=== PATIENT | female | born 1995 | race Caucasian/White ===

== ENCOUNTER 2017-06-16 12:20 | Emergency (ER) | payer BC ==
[~2017-06-16] VITALS: Ht 160 cm; Wt 52.6 kg
[2017-06-16 12:39] VITALS: BP 135/87; PULSE 94; TEMP 36.8; O2SAT 98; Ht 160 cm; Wt 52.6 kg
[2017-06-16] MEDS ORDERED: TOPI100T20 PO (12:51)
[2017-06-16] MEDS ORDERED: FLUV100T12 PO (12:51)
[2017-06-16] MEDS ORDERED: SULF800T23 PO (12:53)
--- NOTE | 2017-06-16 12:54 | EMERGENCY ROOM VISIT NOTE ---
ED Visit Note First contact with patient: 12:43 CHIEF COMPLAINT: Frequent and painful urination HISTORY OF PRESENT ILLNESS: This 21-year-old female presents to the emergency department ambulatory complaining of increased frequency of urination, burning pain with urination, and a feeling of incomplete voiding since yesterday. The patient passes very small volumes of urine with each episode of voiding. The patient does not have abdominal pain. They deny back pain, fever, or vaginal discharge. The patient has had frequent urinary tract infections in the past. The patient does not have history of diabetes, HTN, or urinary tract system dysfunction. Patient feels they are not at risk for STIs. The patient has a history of recurrent urinary tract infections. She did follow with urology several years ago. She has not had a UTI for at least one year. She states that her boyfriend was visiting this weekend and she did have intercourse and feels this is the reason she is having a potential urinary tract infection. REVIEW OF SYSTEMS: A 10 system review of systems was completed with positives and pertinent negatives listed in the HPI. ALLERGIES: No known drug allergies MEDICATIONS: Topamax PMH: Migraines SOCIAL HISTORY: The patient is a student. She does not smoke PHYSICAL EXAM: Vital Signs: Reviewed Nurse's notes, vital signs stable. GENERAL : This is a 21-year-old female, in no acute distress, they do not appear toxic, well-developed, well-nourished. ABDOMEN: Positive bowel sounds x 4. The abdomen is soft, mildly tender in the suprapubic area, but no masses or organs are felt. There is there is minimal right-sided CVA tenderness. The skin is clear. NEURO: Alert and oriented to person place and time. EMERGENCY DEPARTMENT COURSE: I examined the patient. The patient has a history of recurrent urinary tract infection. She is nontoxic in appearance. She does not have a fever. She is not vomiting. She does not have any significant CVA tenderness or abdominal tenderness on examination. The patient states she has done well with Bactrim in the past. A urinalysis was obtained and was sent for culture. She will be placed on Bactrim. She is already taking Pyridium. She is encouraged to return immediately with any fevers, vomiting, worsening pain. The patient was discharged home in good condition. Test 06/16/17 13:00 Urine Color ORANGE Urine Appearance SLIGHTLY CLOUDY (CLEAR) Urine pH (4.5-7.5) Urine Specific Russell 1.016 (1.000-1.030) Urine Protein POS (NEG) Urine Glucose (UA) (NEG) Urine Ketones (NEG) Urine Occult Blood (NEG) Urine Nitrite (NEG) Urine Bilirubin (NEG) Urine Urobilinogen (NEG) Urine Leukocyte Esterase (NEG) Urine RBC >30 /hpf (0-4) Urine WBC >30 /hpf (0-5) Urine Epithelial Cells 20-30 /lpf (0-5) Urine Bacteria 1+ (NEG) Urine Test NEG (NEG) Current/Historical Medications Scheduled Fluvoxamine Maleate (Luvox), 200 MG PO HS Sulfa/Trimethoprim (Bactrim Ds 800MG/160MG), 1 TAB PO BID Topiramate (Topamax), 150 MG PO HS Allergies Coded Allergies: No Known Allergies (Unverified , 07/16/16) Vital Signs Date Time Temp Pulse Resp B/P (MAP) Pulse Ox O2 Delivery O2 Flow Rate FiO2 06/16/17 12:39 36.8 94 15 135/87 98 Room Air Laboratory Results Test 06/16/17 13:00 Urine Color ORANGE Urine Appearance SLIGHTLY CLOUDY (CLEAR) Urine pH (4.5-7.5) Urine Specific Russell 1.016 (1.000-1.030) Urine Protein POS (NEG) Urine Glucose (UA) (NEG) Urine Ketones (NEG) Urine Occult Blood (NEG) Urine Nitrite (NEG) Urine Bilirubin (NEG) Urine Urobilinogen (NEG) Urine Leukocyte Esterase (NEG) Urine RBC >30 /hpf (0-4) Urine WBC >30 /hpf (0-5) Urine Epithelial Cells 20-30 /lpf (0-5) Urine Bacteria 1+ (NEG) Urine Test NEG (NEG) Departure Information Impression Primary Impression: Urinary tract infection Dispostion Home / Self-Care Condition GOOD Prescriptions Sulfa/Trimethoprim (Bactrim Ds 800MG/160MG) Tab 1 TAB PO BID for 7 Days, #14 TAB Prov: Alejandra Escalona PA-C 06/16/17 Referrals [facility] (PCP) Patient Instructions My [facility], Urinary Tract Infection - [facility] Additional Instructions Bactrim every 12 hours for 7 days Continue the Pyridium Return immediately with vomiting, fevers, severe back pain, abdominal pain, generalized worsening symptoms Otherwise, recheck with [facility] next week We will contact you if the culture results indicate the need for change in treatment Problem Qualifiers Primary Impression: Urinary tract infection Urinary tract infection type: acute cystitis Hematuria presence: with hematuria Qualified Codes: N30.01 - Acute cystitis with hematuria
[2017-06-16 13:25] LABS: MANUAL MICROSCOPIC REQUIRED? YES; REVIEW REQ? NO; SULFASALICYLIC ACID POS (NEG); URINE APPEARANCE SLIGHTLY CLOUDY (CLEAR); URINE COLOR ORANGE; URINE SPECIFIC GRAVITY 1.016 (1.000-1.030)
[2017-06-16 13:28] LABS: URINE BACTERIA 1+ (NEG); URINE RBC >30 /hpf (0-4); URINE WBC >30 /hpf (0-5)
[2017-06-16 13:29] LABS: ZZUR CULT IF INDIC CLEAN CATCH YES
--- NOTE | 2017-06-18 12:41 | Pharmacy Progress Note ---
ED Pharmacist Culture FollowUp Date of Service: Jun 18, 2017. Called patient regarding urine culture with ESBL-producing E. coli. Patient reports that her symptoms have not improved, but they have also not worsened. Denied fever/chills, back pain. 1. Counseled to stop Bactrim 2. Informed of highly-resistant nature of E. coli 3. Counseled on the importance of outpatient follow-up 4. Prescription for Macrobid 100 mg po BID x10 days called to [facility] at the patient's request. Patient acknowledged understanding. Case discussed with Dr. Harvey, who is the prescribing provider.
== END 2017-06-16 14:00 | disposition home or self-care (01) ==
LOC: C.EDB 12:21 → C.EDC 14:00
DX: N30.01 Acute cystitis with hematuria (principal); G43.909 Migraine, unspecified, not intractable, without status migrainosus; Z79.899 Other long term (current) drug therapy